=== PATIENT | female | born 2000 | race Hispanic/Latino ===

== ENCOUNTER 2025-07-31 19:14 | Inpatient (IN) | payer SELFPAY ==
[~2025-07-31] VITALS: Ht 167.6 cm; Wt 120.2 kg
[2025-07-31 19:35] LABS: IMMATURE GRANULOCYTE ABSOLUTE 0.06 K/uL (0-1); NUCLEATED RED BLOOD CELLS 0.0 % (0.0-0.19); PLATELET COUNT (AUTO) 276 K/uL (130-400); RED BLOOD CELL COUNT(AUTO) 4.57 MIL/uL (4.00-5.50); RED CELL DISTRIBUTION WIDTH 15.9 % (11.0-15.5); WHITE BLOOD COUNT (AUTO) 15.4 K/uL (4.8-10.8)
[2025-07-31 19:43] LABS: CREATININE 0.6 mg/dL (0.5-1.0); GLOMERULAR FILTR. RATE CALC 128.0 mL/min (>90); GLUCOSE,RANDOM 111.0 mg/dL (70-105); SODIUM SERUM 143.0 mmol/L (136-145); UREA NITROGEN, BLOOD 9.0 mg/dL (7-18)
--- NOTE | 2025-07-31 19:58 | EKG ---
[facility] Test Date: 2025-07-31 Test Time: 19:53:58 Pat Name: DAYNA CARLSON Department: ED Room: 121 Gender: F Manager [employer]: [id number] Requested By: JUSTINE IBRAHIM Order Number: [id number] Reading MD: Saqib Simons Measurements Intervals [place] Rate: 68 P: 52 WI: 166 QRS: 24 QRSD: 97 T: 43 QT: 381 QTc: 405 Interpretive Statements Sinus rhythm No previous ECG available for comparison Electronically Signed On 08-01-2025 17:45:55 CDT by Saqib Simons Please click the below link to view image of tracing.
[2025-07-31] MEDS ORDERED: IOHEXOL-350 75 ML VIAL IV ONE (20:24)
[2025-07-31] MEDS: 0.9%NACL 1000ML 1,000 ML IV SCH (20:44)
[2025-07-31 20:48] LABS: ASPARTATE AMINOTRANSFERASE 17.0 U/L (10-37); TOTAL PROTEIN, SERUM 7.5 g/dL (6.0-8.3)
--- NOTE | 2025-07-31 21:03 | HMCIMG ---
EXAMINATION CT abdomen and pelvis with intravenous contrast. CLINICAL HISTORY Right upper quadrant pain to rule out acute cholecystitis. TECHNIQUE Axial CT of the abdomen and pelvis with intravenous contrast. Multiplanar reformations were generated and reviewed. CONTRAST With intravenous contrast. COMPARISON None provided. FINDINGS LUNG BASES Clear. No pleural effusions. LIVER Hepatomegaly with the craniocaudal length of the right lobe measuring up to 19.5 cm. GALLBLADDER AND BILE DUCTS Mild questionable gallbladder wall thickening measuring up to 0.4 cm. No hyperdense calculi. No biliary ductal dilatation. PANCREAS Unremarkable. SPLEEN Unremarkable. ADRENAL GLANDS Unremarkable. KIDNEYS, URETERS, AND BLADDER Normal appearance. No hydronephrosis or hydroureter. No urinary calculi. STOMACH AND BOWEL Unremarkable. No bowel obstruction, enteritis, or colitis. APPENDIX No CT features of acute appendicitis. PERITONEUM No free fluid or free air. LYMPH NODES No lymphadenopathy. REPRODUCTIVE Bulky left ovary measuring up to 3.6 x 3.4 cm. Recommend ultrasound correlation. Unremarkable as otherwise assessed. VASCULATURE Normal caliber aorta. BONES No aggressive or acute osseous pathology. IMPRESSION Hepatomegaly. Mild questionable gallbladder wall thickening. Recommend ultrasound correlation. Bulky left ovary. Recommend ultrasound correlation. /[place]
--- NOTE | 2025-07-31 21:41 | ERN ---
General Chief Complaint: Chest Pain Stated Complaint: CHEST/EPIGASTRIC PAIN Time Seen by MD: 19:16 Time Seen by Midlevel: 19:16 Source: patient History of Present Illness Initial Comments 29-year-old female presents to the emergency department with severe right upper quadrant abdominal pain initially described as chest pain. Pain started a proximally 4 hours prior to arrival. With associated nausea and vomiting. Denies any other symptoms. Does report having a history of gallstones Allergies: Coded Allergies: No Known Drug Allergies (Unverified Allergy, Unknown, 07/31/25) Past Medical History Past Medical History: No Pertinent History Past Surgical History: None Female( History) LMP: Jul 11, 2025 ROS Dictation CONSTITUTIONAL: Negative except for HPI HEAD/FACE: Negative except for HPI EENT: Negative except for HPI RESPIRATORY: Negative except for HPI GASTROINTESTINAL/ABDOMINAL: Negative except for HPI GENITOURINARY: Negative except for HPI MUSCULOSKELETAL: Negative except for HPI INTEGUMENTARY: Negative except for HPI NEUROLOGICAL/PSYCH: Negative except for HPI HEMATOLOGIC/LYMPHATIC: Negative except for HPI All Systems Negative, Except as noted above. 13 point review of systems assessed and all negative except for above. Physical Exam Physical Exam Dictation Vital Signs reviewed General Appearance: Alert, oriented x 3, no acute distress, well developed, nourished. Head and Face: non-traumatic. Eyes: PERRL, pink conjunctivas, eyelid no trauma, anterior chamber with arcus senilis. Ears: Pinnas intact and no signs of trauma or erythema ear canals clear and no discharge TM no erythema Nose: No discharge, no bleeding. Oropharynx: Mouth normal, tongue pink, pharynx clear,no erythema, tonsils no exudates, no abscesses noted, mucous membrane moist Neck: Supple, non-tender, no thyromegaly, no masses, no JVD, no bruits Breast:Deferred Chest:No tenderness, no crepitus, no paradoxical movement, no retractions Lungs:Clear, well-ventilated, symmetric, no rales, no wheezing, no rhonchi, no stridor, good breath sounds bilaterally Heart: Regular rate, regular rhythm, no murmur, no gallops Vascular: no peripheral edema, Abdomen: Soft, positive bowel sounds, nondistended, no guarding, nontender, no rebound, no masses no hepatomegaly, no splenomegaly, no Collier's sign, no hernias. Rectal: Deferred Genital: Deferred Neurological: Normal speech, motor function intact, sensory function intact Musculoskeletal: Neck nontender, full range of motion, back nontender, full range of motion, Extremities: nontender, full range of motion Skin: Color pink, dry, no turgor, no rash, no lacerations, no abrasions, no contusions. Lymphatic: Deferred Results Laboratory and Microbiology Lab and Micro Result Laboratory Tests Test 07/31/25 19:24 White Blood Count 15.4 K/uL (4.8-10.8) H Red Blood Count 4.57 MIL/uL (4.00-5.50) Hemoglobin 11.9 g/dL (12.0-16.0) L Hematocrit 37.6 % (36-48) Mean Corpuscular Volume 82.3 fL (79-99) Mean Corpuscular Hemoglobin 26.0 pg (27.0-33.0) L Mean Corpuscular Hemoglobin Concent 31.6 g/dL (32.0-36.0) L Red Cell Distribution Width 15.9 % (11.0-15.5) H Platelet Count 276 K/uL (130-400) Mean Platelet Volume 11.4 fL (7.5-10.5) H Immature Granulocyte % (Auto) 0.4 % (0-1) Neutrophils (%) (Auto) 80.3 % (40.0-77.0) H Lymphocytes (%) (Auto) 13.6 % (21.0-51.0) L Monocytes (%) (Auto) 4.7 % (3.0-13.0) Eosinophils (%) (Auto) 0.7 % (0.0-8.0) Basophils (%) (Auto) 0.3 % (0.0-5.0) Neutrophils # (Auto) 12.3 K/uL (1.8-7.7) H Lymphocytes # (Auto) 2.1 K/uL (1.0-4.8) Monocytes # (Auto) 0.7 K/uL (0.1-1.0) Eosinophils # (Auto) 0.11 K/uL (0.00-0.70) Basophils # (Auto) 0.04 K/uL (0.00-0.20) Absolute Immature Granulocyte (auto 0.06 K/uL (0-1) Nucleated Red Blood Cells 0.0 % (0.0-0.19) Sodium Level 143 mmol/L (136-145) Potassium Level 3.4 mmol/L (3.5-5.1) L Chloride Level 105 mmol/L (101-111) Carbon Dioxide Level 27 mmol/L (21-32) Blood Urea Nitrogen 9 mg/dL (7-18) Creatinine 0.6 mg/dL (0.5-1.0) Glomerular Filtration Rate Calc 128 mL/min (>90) Random Glucose 111 mg/dL (70-105) H Total Calcium 8.7 mg/dL (8.5-10.1) Total Bilirubin 0.4 mg/dL (0.2-1.0) Direct Bilirubin 0.1 mg/dL (0.0-0.3) Aspartate Amino Transf (AST/SGOT) 17 U/L (10-37) Alanine Aminotransferase (ALT/SGPT) 23 U/L (12-78) Alkaline Phosphatase 84 U/L (50-136) Troponin I High Sensitivity 4 ng/L (4-50) Total Protein 7.5 g/dL (6.0-8.3) Albumin 4.0 g/dL (3.5-5.0) Lipase 21 U/L (16-77) Serum Test, Qualitative NEGATIVE (NEGATIVE) Labs Reviewed?: Yes MDM MDM: Differential diagnosis: Rationale: Tests considered and ordered secondary to shared decision making include: Previous outside records reviewed: Old ER visits. Risk of complication and/or morbidity or mortality of patient management: None Medications-Per medication reconciliation Need for hospitalization: Patient does meet criteria for hospitalization. Need for emergency major/minor surgery: No There are no social concerns with this patient. Prescription drug management Prescriptions will include symptomatic care Patient's prior external medical records from other ER visits were reviewed by me as indicated. Prior testing and results from previous visits were reviewed. Prior tests were taken into account with medical decision making and resource utilization, independent historian/historians were used to obtain complete medical history. I independently interpreted the test that were performed, results were reviewed by me and considered findings on radiology if ordered. Medical management and examination interpretation discussions were had by me with other qualified healthcare professionals as indicated for the patient's care. Patient's abdominal CT scan shows questionable thickened gallbladder wall. Follow-up right upper quadrant ultrasound showed a gallstone stuck in the neck of the patient's gallbladder as well as other stones. In addition patient has a positive ultrasonic Collier's sign. In addition patient has an elevated white count to 15. Chemistry panel shows a mild hypokalemia and normal renal function negative no elevation of her LFTs. I discussed results with the patient and she told me that she has had prior episodes of this pain but it was dismissed as anxiety. I recommended to patient that she be admitted to the hospital as the gallbladder neck is impacted and her condition will not improve as long as the stone is stuck in the gallbladder neck. Also given that she has had 3-4 episodes of this in the past I recommend she have her gallbladder removed. She agreed to be admitted. The general surgeon on-call Dr. Shaffer she agreed to admit the patient to the hospitalist service with her as a consult. ED Course Orders Procedure Category Date Status Time 12 Lead Ekg Tracing- EKG 07/31/25 Complete Technical 19:17 Cbc With Differential LAB 07/31/25 Complete 19:17 Basic Metabolic Panel LAB 07/31/25 Complete 19:17 Testing, LAB 07/31/25 Complete Serum Hcg 19:17 Drug Screen Urine LAB 07/31/25 Logged 19:17 Troponin I High LAB 07/31/25 Complete Sensitivity 19:17 Chest 1vw RAD 07/31/25 Taken 19:58 Ketorolac PHA 07/31/25 In Process Tromethamine 15mg/Ml 20:30 Ct Abdomen/Pelvis CT 07/31/25 Resulted W/Contrast 20:10 Hepatic Function Panel LAB 07/31/25 Complete 20:10 Lipase LAB 07/31/25 Complete 20:10 0.9%Nacl 1000ml (Ns PHA 07/31/25 In Process 1000ml) 20:30 Ondansetron 4mg Inj PHA 07/31/25 In Process (Zofran 4mg Inj) 20:30 Iohexol (Omnipaque) PHA 07/31/25 Complete 20:24 Morphine 4mg Syg PHA 07/31/25 In Process (Morphine 4mg Syg) 20:30 Us Abdominal Ruq\Ltd US 07/31/25 Taken 20:31 Current Medications Medications (Trade) Dose Ordered Sig/Misael Route PRN Reason Start Time Stop Time Status Last Admin Dose Admin Iohexol (Omnipaque) 75 ml STK-MED ONCE IV 10/17/25 20:24 07/31/25 20:24 DC Ketorolac Tromethamine (toRADol) 15 mg ONCE IV 07/31/25 20:30 07/31/25 23:59 07/31/25 20:43 Morphine Sulfate (morPHINE 4MG SYG) 2 mg ONCE IVP 07/31/25 20:30 07/31/25 23:59 07/31/25 20:44 Ondansetron HCl (zoFRAN 4MG INJ) 4 mg ONCE IVP 07/31/25 20:30 07/31/25 23:59 07/31/25 20:44 Sodium Chloride 1,000 ml @ 0 mls/hr ONCE IV 07/31/25 20:30 08/01/25 20:29 07/31/25 20:44 Vital Signs Date Time Temp Pulse Resp B/P (MAP) Pulse Ox O2 Delivery O2 Flow Rate FiO2 07/31/25 20:27 98.8 92 18 149/80 99 Room Air* 0 21 07/31/25 19:16 99.0 70 22 145/88 98 Room Air 0 DX & DISP Disposition: Inpatient Departure Impression: Primary Impression: Acute cholecystitis due to biliary calculus Condition: Stable I have reviewed the case, and I agree with, Diagnosis and Plan I performed the substantive portion of the visit. I have reviewed and personally made and approve the management plan that is documented in the note by myself or the GIANNA. I acknowledge for responsibility for the patient's management plan. JUSTINE IBRAHIM Jul 31, 2025 21:41 RG MCFARLAND MD Jul 31, 2025 22:20
--- NOTE | 2025-07-31 22:37 | NUR ---
PATIENT NOT TAKING ANY HOME MEDS
--- NOTE | 2025-07-31 22:51 | HMCIMG ---
EXAM: CR Chest, 1 view CLINICAL HISTORY: Chest pain. COMPARISON: None provided. FINDINGS: The lungs show no infiltrates or other acute findings. No pleural effusion or pneumothorax. The cardiomediastinal silhouette is within normal limits. No acute osseous abnormality. IMPRESSION: No acute cardiopulmonary process is evident. /[employer]
[2025-07-31] MEDS: ZOSYN 3.375GM +NS 50ML IVPB ONE (22:52)
--- NOTE | 2025-07-31 22:54 | HMCIMG ---
EXAMINATION: ULTRASOUND OF THE ABDOMEN (LIMITED) WITH COLOR DOPPLER. CLINICAL HISTORY: Pain. COMPARISON: CT of the abdomen and pelvis with contrast from the same day. TECHNIQUE: Real-time grayscale ultrasound images of the abdomen. In addition, color Doppler is medically necessary to perform in order to evaluate vascularity and blood flow. FINDINGS: Liver: Bulky, the right hepatic lobe measures 18.3 cm in the craniocaudal dimension. There is increased echogenicity of the hepatic parenchyma. There is no focal hepatic abnormality or intrahepatic biliary ductal dilatation. There is a normal spectral Doppler of the main portal vein. Gallbladder: Overdistended with normal wall thickness (0.19 cm). No hyperemia or pericholecystic free fluid. There are multiple calculi, the largest measuring 1.5 cm, and a non-mobile calculus that measures 0.6 cm in the neck. The common bile duct is obscured by overlying bowel gas. Pancreas: Not well visualized. The right kidney is normal in caliber; it measures 11.8 x 6.1 x 5.5 cm in its craniocaudal, AP, and transverse dimensions, respectively. There is normal renal cortical thickness and cortical echogenicity. There is no renal calculus or hydronephrosis. IMPRESSION: Hepatomegaly with hepatic steatosis. Overdistended gallbladder with multiple calculi. Non-mobile calculus in the neck of the gallbladder. No acute cholecystitis. /[place]
--- NOTE | 2025-07-31 23:22 | HP ---
[facility] Date of Service: Jul 31, 2025 Time of Service: 23:21 PCP: Kimani Valle HISTORY OF PRESENT ILLNESS: This is a 25-year-old female no pertinent medical and surgical history who presents to the ED for complaints of epigastric pain which radiates to her right upper quadrant area and patient initially described it as chest pain.Patient reports pain was localized around epigastric are associated with nausea but no vomiting which started today.Patient reports she has similar problem like this before and she went to [facility] and was told she had only panic anxiety and was sent home.Patient reports she had scrambled egg and potatoes for breakfast and 4 hours after that she started experiencing severe pain.Patient states she has a normal bowel movement today. On examination,patient is awake,alert and coherent,continue to complain of epigastric pain 5/10 pain level.Patient denies fever,chills,vomiting,chest pain,palpitation and shortness of breath. Latest vital signs temperature 98, heart rate 92, blood pressure 149/80 saturation 99% on room air. Labs: WBC 15, with negative left shift of neutrophils 80, hemoglobin 11, hematocrit 37, platelet count 276. Potassium 3.4, random glucose 111, troponin four test negative the rest of the enzymes were normal. Chest x-ray result revealed no acute cardiopulmonary process. CT abdomen and pelvis with contrast result re vealed hepatomegaly. Mild questionable gallbladder wall thickening. Bulky left ovary. Abdominal ultrasound result revealed hepatomegaly with hepatic steatosis. Over distended gallbladder with multiple calculi. Nonmobile calculus in the neck of the gallbladder. No acute cholecystitis. While in the ER patient received Toradol 15 mg IV, 1 L NS bolus, morphine 2 mg IV, Zofran 4 mg IV and Zosyn IV. As per ER doctor Michelle, on-call surgeon was notified & consulted. Will admit patient for further medical management REVIEW OF SYSTEMS CONSTITUTIONAL: Denies fevers, chills, or night sweats. No unintentional weight loss reported. NEUROLOGICAL: Denies headache, amaurosis fugax, motor weakness, sensory deficit, vertigo/spinning sensation, gait abnormalities, or tremors. ENT: No hearing loss, otalgia, otorrhea, rhinitis, rhinorrhea, hoarseness, or sore throat. CARDIOVASCULAR: Denies any exertional angina, dyspnea on exertion, orthopnea, paroxysmal nocturnal dyspnea, palpitations, life-threatening arrhythmias, claudication. PULMONARY: Denies any shortness of breath, cough, phlegm/sputum, hemoptysis, pleuritic chest pain. SLEEP: Denies morning headaches, daytime somnolence or napping. Denies difficulty falling asleep, staying asleep, waking from sleep. Denies knowledge of snoring. GASTROINTESTINAL: Epigastric and right upper quadrant associated with nausea Denies any type of dysphagia to either liquids or solids. Denies vomiting, pyrosis, early satiety, diarrhea, constipation, or changes in stool consistency or caliber. Denies coffee-ground emesis, hematemesis, hematochezia, or melanotic stools. GENITOURINARY: Denies frequency, urgency, nocturia, hematuria or incontinence (Storage/Irritative symptoms.) Low urinary stream, straining to void, urinary intermittency or hesitancy, splitting of the voiding stream, terminal dribbling. ENDOCRINOLOGIC: Denies polyuria, polydipsia, polyphagia or heat/cold intolerances. HEMATOLOGIC: Denies thrombophilia/previous clots, or coagulopathy/bleeding disorders. ONCOLOGIC: Denies personal history of malignancy. DERMATOLOGIC: Denies rashes or pruritus. PSYCHIATRIC: Denies any suicidal or homicidal ideation. Denies hallucinations. PAST MEDICAL HISTORY: [ Patient denies ] PAST SURGICAL HISTORY: [Patient denies ] PAST SOCIAL HISTORY: [Patient denies alcohol tobacco and recreational drug use patient admits to living with mother. Patient states occasionally she drinks two beers per month ] FAMILY HISTORY: [ Noncontributory ] Coded Allergies: No Known Drug Allergies (Unverified Allergy, Unknown, 07/31/25) PHYSICAL EXAM GENERAL APPEARANCE: The patient is awake, alert, and oriented, in no acute cardiopulmonary distress. NEUROLOGICAL: Cranial nerves II-XII grossly intact. Motor is 5/5 in bilateral upper and lower extremities proximal to distal. No sensory deficits. HEENT: Face is symmetric. Pupils are equal and reactive. Extraocular movements are intact. NECK: Supple. No JVD. No thyromegaly. No submental, submandibular, pre- /postauricular, occipital or supraclavicular lymphadenopathy. CHEST: Normal chest expansion. No Telemetry. LUNGS: Absence of any rales, rhonchi or any wheezing. CARDIOVASCULAR: Regular. S1 and S2 normal. No appreciable rubs, murmurs or gallops. ABDOMEN: abdominal tenderness around right upper quadrant and epigastric area on palpation Soft and nondistended. There is no rebound, voluntary guarding, or rigidity. : Deferred. No [place]. EXTREMITIES: Non-edematous and not cyanotic. No clubbing. Good capillary refill. SKIN: No skin breakdown. Vital Sign (Last 24 Hours) 07/31/25 20:27 Temp 98.8 Pulse 92 Resp 18 B/P (MAP) 149/80 Pulse Ox 99 O2 Delivery Room Air* O2 Flow Rate 0 FiO2 21 LABS: Laboratory: Test 07/31/25 19:24 Range/Units White Blood Count 15.4 H 4.8-10.8 K/uL Red Blood Count 4.57 4.00-5.50 MIL/uL Hemoglobin 11.9 L 12.0-16.0 g/dL Hematocrit 37.6 36-48 % Mean Corpuscular Volume 82.3 79-99 fL Mean Corpuscular Hemoglobin 26.0 L 27.0-33.0 pg Mean Corpuscular Hemoglobin Concent 31.6 L 32.0-36.0 g/dL Red Cell Distribution Width 15.9 H 11.0-15.5 % Platelet Count 276 130-400 K/uL Mean Platelet Volume 11.4 H 7.5-10.5 fL Immature Granulocyte % (Auto) 0.4 0-1 % Neutrophils (%) (Auto) 80.3 H 40.0-77.0 % Lymphocytes (%) (Auto) 13.6 L 21.0-51.0 % Monocytes (%) (Auto) 4.7 3.0-13.0 % Eosinophils (%) (Auto) 0.7 0.0-8.0 % Basophils (%) (Auto) 0.3 0.0-5.0 % Neutrophils # (Auto) 12.3 H 1.8-7.7 K/uL Lymphocytes # (Auto) 2.1 1.0-4.8 K/uL Monocytes # (Auto) 0.7 0.1-1.0 K/uL Eosinophils # (Auto) 0.11 0.00-0.70 K/uL Basophils # (Auto) 0.04 0.00-0.20 K/uL Absolute Immature Granulocyte (auto 0.06 0-1 K/uL Nucleated Red Blood Cells 0.0 0.0-0.19 % Sodium Level 143 136-145 mmol/L Potassium Level 3.4 L 3.5-5.1 mmol/L Chloride Level 105 101-111 mmol/L Carbon Dioxide Level 27 21-32 mmol/L Blood Urea Nitrogen 9 7-18 mg/dL Creatinine 0.6 0.5-1.0 mg/dL Glomerular Filtration Rate Calc 128 >90 mL/min Random Glucose 111 H 70-105 mg/dL Total Calcium 8.7 8.5-10.1 mg/dL Total Bilirubin 0.4 0.2-1.0 mg/dL Direct Bilirubin 0.1 0.0-0.3 mg/dL Aspartate Amino Transf (AST/SGOT) 17 10-37 U/L Alanine Aminotransferase (ALT/SGPT) 23 12-78 U/L Alkaline Phosphatase 84 50-136 U/L Troponin I High Sensitivity 4 4-50 ng/L Total Protein 7.5 6.0-8.3 g/dL Albumin 4.0 3.5-5.0 g/dL Lipase 21 16-77 U/L Serum Test, Qualitative NEGATIVE NEGATIVE Current Medications Medications (Trade) Dose Ordered Sig/Misael Route PRN Reason Start Time Stop Time Status Last Admin Dose Admin Ketorolac Tromethamine (toRADol) 15 mg ONCE IV 07/31/25 20:30 07/31/25 23:59 07/31/25 20:43 15 MG Morphine Sulfate (morPHINE 4MG SYG) 2 mg ONCE IVP 07/31/25 20:30 07/31/25 23:59 07/31/25 20:44 2 MG Ondansetron HCl (zoFRAN 4MG INJ) 4 mg ONCE IVP 07/31/25 20:30 07/31/25 23:59 07/31/25 20:44 4 MG Sodium Chloride 1,000 ml @ 0 mls/hr ONCE IV 07/31/25 20:30 08/01/25 20:29 07/31/25 20:44 999 MLS/HR DIAGNOSTICS / RADIOLOGY: [ ] ASSESSMENT: Symptomatic cholelithiasis secondary to gallstones Acute leukocytosis POA Hypokalemia POA Morbid obesity POA PLAN: We will admit patient in medical surgical We will keep nothing by mouth We will started famotidine 20 mg IV b.i.d. for GI prophylaxis Continue Zosyn IV Q 8 hours for empiric coverage We will start NS @ 100 ml / hr x2 bags and re evaluate We will replace electrolytes as needed per protocol We will add prn medication for fever,pain,cough , nausea and vomiting General surgery consultation per ER MD and pending to evaluate We will request labs in am Up urinalysis and urine drug screen result Further orders to follow depending on above results Case discussed with attending physician and came up with above treatment and plan of care. ADVANCED CARE PLANNING 1. Which of the following were discussed? Hospice Care - No Therapeutic options - Yes Advance Directives - No Other discussions - 2. Discussed with who? Patient and mother 3. Voluntary nature of this service was explained to the patient? Yes 4. Amount of time spent - _22 min 5. Reviewed by Physician? (if this service was performed by NPP) Yes Patient seen and examined by me. Agree with note by FISH CUTTING MACHINE OPERATOR SEE ADDITIONAL ORDERS PER CHART DISCUSSED WITH NURSING STAFF INA VOP Jul 31, 2025 23:22
[2025-08-01] VITALS (23 sets, daily range): BP systolic 105–136; BP diastolic 60–89; PULSE 64–92; RESP 16–19; TEMP 97.2–98.1; O2SAT 100
[2025-08-01] MEDS: 0.9%NACL 1000ML 1,000 ML IV SCH (00:21)
--- NOTE | 2025-08-01 01:40 | NUR ---
admit note/teaching admit to room 421 via stretcher from er, patient awake, alert, ox3, no sob, no c/o pain at this time,iv fusing well to right ac20 gauge catheter, patients mother at bedside, teach patient and family member plan of care, npo status, pain management and expected outcome, both verbalize understanding via teach back,
[2025-08-01 02:13] LABS: ADD UA MICROSCOPIC YES; APPEARANCE,URINE CLEAR (CLEAR); GLUCOSE, URINE (UA) NEGATIVE (NEGATIVE); LEUKOCYTE ESTERASE ,URINE NEGATIVE Leu/uL (NEGATIVE); NITRATE,URINE NEGATIVE (NEGATIVE); OCCULT BLOOD,URINE MODERATE (NEGATIVE)
[2025-08-01 02:15] LABS: SQUAMOUS EPITHELIAL CELL,UR RARE /HPF (0-2)
[2025-08-01 02:18] LABS: AMPHET/METH SCREEN,URINE NEGATIVE (NEGATIVE); BARBITURATE SCREEN, URINE NEGATIVE (NEGATIVE); CANNABINOID SCREEN,URINE NEGATIVE (NEGATIVE); COCAINE SCREEN,URINE NEGATIVE (NEGATIVE)
[2025-08-01] MEDS: ZOSYN 3.375GM+NS 50ML 50 ML IV SCH (04:15)
[2025-08-01 05:51] LABS: IMMATURE GRANULOCYTE ABSOLUTE 0.02 K/uL (0-1); NUCLEATED RED BLOOD CELLS 0.0 % (0.0-0.19); PLATELET COUNT (AUTO) 239 K/uL (130-400); RED BLOOD CELL COUNT(AUTO) 4.07 MIL/uL (4.00-5.50); RED CELL DISTRIBUTION WIDTH 15.9 % (11.0-15.5); WHITE BLOOD COUNT (AUTO) 11.8 K/uL (4.8-10.8)
[2025-08-01 06:04] LABS: INR 1.03 (0.85-1.15)
[2025-08-01 06:07] LABS: ASPARTATE AMINOTRANSFERASE 13.0 U/L (10-37); CREATININE 0.5 mg/dL (0.5-1.0); GLOMERULAR FILTR. RATE CALC 133.0 mL/min (>90); GLUCOSE,RANDOM 85.0 mg/dL (70-105); LDL DIRECT 53.0 mg/dL (0-99); SODIUM SERUM 141.0 mmol/L (136-145); TOTAL PROTEIN, SERUM 5.8 g/dL (6.0-8.3); UREA NITROGEN, BLOOD 6.0 mg/dL (7-18)
[2025-08-01] MEDS: FAMOTIDINE 20MG VIAL IV SCH (08:09)
--- NOTE | 2025-08-01 09:46 | PN ---
Consulting physician:Dr Grossman Consulting service: General surgery Reason for consultation: Symptomatic cholelithiasis History of present illness: This is a 25-year-old female with no significant medical history that has been consulted to surgery after presenting with the abdominal pain that began yesterday. Patient with known history of cholelithiasis. Last episode earlier this year. Due to concerns patient presented where imaging was performed and concerns of gallbladder distention noted. WBCs 11.8 with a hemoglobin of 10.7. LFTs unremarkable. On physical exam patient is still with the upper quadrant discomfort. Patient currently NPO with IV fluids and IV antibiotics Medical history: Known cholelithiasis Surgical history: None reported Review of systems: General: No Fever, No Chills, No Night Sweats, No Fatigue, No Malaise, No Appetite, No Other HEENT: No Head Aches, No Visual Changes, No Eye Pain, No Ear Pain, No Dysphasia, No Sinus Congestion, No Post Nasal Drip, No Sore Throat, No Other Pulmonary: No Dyspnea, No Cough, No Pleuritic Chest Pain, No Other Cardiovascular: No: Chest Pain, Palpitations, Orthopnea, Paroxysmal No Dyspnea, Edema, Lt Headedness, Other Gastrointestinal: No: Nausea, Vomiting, Diarrhea, Constipation, Melena, Hematochezia, Other Genitourinary: No Dysuria, No Frequency, No Incontinence, No Hematuria, No Retention, No Other Musculoskeletal: No: other, neck pain, shoulder pain, arm pain, back pain, hand pain, leg pain, foot pain Skin: No Urticaria, No Rash, No Other Neurological: No: Weakness, Numbness, Incoordination, Change in speech, Confusion, Seizures, Other Physical exam: General: Awake alert and oriented Heart: Regular rate and rhythm} Lungs: [Clear to auscultation no distress Abdomen: Improving upper quadrant pain Assessment: This is a 25-year-old female with concerns of symptomatic cholelithiasis Plan: At this point in time patient will be scheduled for robotic laparoscopic cholecystectomy possible open to be performed by Dr. Shaffer Patient will remain NPO Continue with the IV fluids and IV antibiotics Consent to be obtained for surgical intervention Nursing to report any further acute events Surgical case has been discussed with my supervising physician in the above plan was formulated and agreed upon Supervising physicians evaluation the patient be done within next 24 hours We appreciate the hospitalist team for us to participate in patient's care. Greater than 55 minutes of time spent patient, reviewing chart, working on documentation Vitals/Labs Vital Signs Date Time Temp Pulse Resp B/P (MAP) Pulse Ox O2 Delivery O2 Flow Rate FiO2 08/01/25 08:00 100 Room Air* 0 21 08/01/25 07:57 98.1 77 18 122/80 Laboratory Tests 07/31/25 19:24 08/01/25 05:22 Medications Current Medications Ketorolac Tromethamine 15 mg ONCE IV Last administered on 07/31/25at 20:43; Start 07/31/25 at 20:30; Stop 07/31/25 at 23:59; Status DC Sodium Chloride 1,000 ml @ 0 mls/hr ONCE IV Last administered on 07/31/25at 20:44; Start 07/31/25 at 20:30; Stop 08/01/25 at 20:29 Morphine Sulfate 2 mg ONCE IVP Last administered on 07/31/25at 20:44; Start 07/31/25 at 20:30; Stop 07/31/25 at 23:59; Status DC Ondansetron HCl 4 mg ONCE IVP Last administered on 07/31/25at 20:44; Start 07/31/25 at 20:30; Stop 07/31/25 at 23:59; Status DC Iohexol 75 ml STK-MED ONCE IV; Start 07/31/25 at 20:24; Stop 07/31/25 at 20:24; Status DC Piperacillin Sod/ Tazobactam Sod 3.375 gm ONCE ONCE IVPB Last administered on 07/31/25at 22:52; Start 07/31/25 at 22:30; Stop 07/31/25 at 22:45; Status DC Acetaminophen 650 mg Q6H PRN PO; Start 08/01/25 at 00:00; Stop 08/31/25 at 00:00 Acetaminophen 650 mg Q4H PRN PO; Start 08/01/25 at 00:00; Stop 08/31/25 at 00:00 Ondansetron HCl 4 mg Q6H PRN IV; Start 08/01/25 at 00:00; Stop 08/31/25 at 00:00 Piperacillin Sod/ Tazobactam Sod 50 ml @ 12.5 mls/hr Q8H IV Last administered on 08/01/25at 04:15; Start 08/01/25 at 05:00; Stop 08/11/25 at 04:59 Sodium Chloride 1,000 ml @ 100 mls/hr Q10H IV Last administered on 08/01/25at 00:21; Start 08/01/25 at 00:00; Stop 08/31/25 at 00:00 Famotidine 20 mg BID IV Last administered on 08/01/25at 08:09; Start 08/01/25 at 09:00; Stop 08/31/25 at 08:59 Ketorolac Tromethamine 15 mg Q6H PRN IV; Start 08/01/25 at 00:00; Stop 08/06/25 at 00:00 WEI AMES Jr. PAC Aug 01, 2025 09:46
--- NOTE | 2025-08-01 13:00 | NUR ---
PATIENT TAKEN TO PROCEDURE. NO SIGNS OF DISTRESS NOTED.
--- NOTE | 2025-08-01 13:00 | PN ---
[facility] PROGRESS NOTE Date of Service: Aug 01, 2025 Time of Service: 12:57 Attending doctor Lupe SUBJECTIVE: [ 07/31 This is a 25-year-old female no pertinent medical and surgical history who presents to the ED for complaints of epigastric pain which radiates to her right upper quadrant area and patient initially described it as chest pain.Patient reports pain was localized around epigastric are associated with nausea but no vomiting which started today.Patient reports she has similar problem like this before and [place] [facility] [place] she had only panic anxiety and was sent home.Patient reports she had scrambled egg and potatoes for breakfast and 4 hours after that she started experiencing severe pain.Patient states she has a normal bowel movement today. On examination,patient is awake,alert and coherent,continue to complain of epigastric pain 5/10 pain level.Patient denies fever,chills,vomiting,chest pain,palpitation and shortness of breath. Latest vital signs temperature 98, heart rate 92, blood pressure 149/80 saturation 99% on room air. Labs: WBC 15, with negative left shift of neutrophils 80, hemoglobin 11, hematocrit 37, platelet count 276. Potassium 3.4, random glucose 111, troponin four test negative the rest of the enzymes were normal. Chest x-ray result revealed no acute cardiopulmonary process. CT abdomen and pelvis with contrast result revealed hepatomegaly. Mild questionable gallbladder wall thickening. Bulky left ovary. Abdominal ultrasound result revealed hepatomegaly with hepatic steatosis. Over distended gallbladder with multiple calculi. Nonmobile calculus in the neck of the gallbladder. No acute cholecystitis. While in the ER patient received Toradol 15 mg IV, 1 L NS bolus, morphine 2 mg IV, Zofran 4 mg IV and Zosyn IV. As per ER doctor Michelle, on-call surgeon was notified & consulted. Will admit patient for further medical management 08/01 patient was seen by nurse practitioner and physician during rounding in room 121 patient's WBC is trending down today is 11.8. Patient continues to be on Zosyn. Patient was examined by a surgeon and that is pending kam curtis today 08/01/2025. Patient continues to complain of abdominal pain. Family at the bedside. Patient to be on p.o.. We will continue to follow up in the meantime. A.m. labs. ] REVIEW OF SYSTEMS CONSTITUTIONAL: Denies fevers, chills, or night sweats. No unintentional weight loss reported. NEUROLOGICAL: Denies headache, amaurosis fugax, motor weakness, sensory deficit, vertigo/spinning sensation, gait abnormalities, or tremors. ENT: No hearing loss, otalgia, otorrhea, rhinitis, rhinorrhea, hoarseness, or sore throat. CARDIOVASCULAR: Denies any exertional angina, dyspnea on exertion, orthopnea, paroxysmal nocturnal dyspnea, palpitations, life-threatening arrhythmias, claudication. PULMONARY: Denies any shortness of breath, cough, phlegm/sputum, hemoptysis, p leuritic chest pain. SLEEP: Denies morning headaches, daytime somnolence or napping. Denies difficulty falling asleep, staying asleep, waking from sleep. Denies knowledge of snoring. GASTROINTESTINAL: Epigastric and right upper quadrant associated with nausea Denies any type of dysphagia to either liquids or solids. Denies vomiting, pyrosis, early satiety, diarrhea, constipation, or changes in stool consistency or caliber. Denies coffee-ground emesis, hematemesis, hematochezia, or melanotic stools. GENITOURINARY: Denies frequency, urgency, nocturia, hematuria or incontinence (Storage/Irritative symptoms.) Low urinary stream, straining to void, urinary intermittency or hesitancy, splitting of the voiding stream, terminal dribbling. ENDOCRINOLOGIC: Denies polyuria, polydipsia, polyphagia or heat/cold intolerances. HEMATOLOGIC: Denies thrombophilia/previous clots, or coagulopathy/bleeding disorders. ONCOLOGIC: Denies personal history of malignancy. DERMATOLOGIC: Denies rashes or pruritus. PSYCHIATRIC: Denies any suicidal or homicidal ideation. Denies hallucinations. PHYSICAL EXAM GENERAL APPEARANCE: The patient is awake, alert, and oriented, in no acute cardiopulmonary distress. NEUROLOGICAL: Cranial nerves II-XII grossly intact. Motor is 5/5 in bilateral upper and lower extremities proximal to distal. No sensory deficits. HEENT: Face is symmetric. Pupils are equal and reactive. Extraocular movements are intact. NECK: Supple. No JVD. No thyromegaly. No submental, submandibular, pre-/postauricular, occipital or supraclavicular lymphadenopathy. CHEST: Normal chest expansion. No Telemetry. LUNGS: Absence of any rales, rhonchi or any wheezing. CARDIOVASCULAR: Regular. S1 and S2 normal. No appreciable rubs, murmurs or gallops. ABDOMEN: abdominal tenderness around right upper quadrant and epigastric area on palpation Soft and nondistended. There is no rebound, voluntary guarding, or rigidity. : Deferred. No Soto. EXTREMITIES: Non-edematous and not cyanotic. No clubbing. Good capillary refill. SKIN: No skin breakdown. Vital Signs (last 8hr) Date Time Temp Pulse Resp B/P (MAP) Pulse Ox O2 Delivery O2 Flow Rate FiO2 08/01/25 10:29 98.1 70 19 135/85 98 Room Air 08/01/25 08:00 100 Room Air* 0 21 08/01/25 07:57 98.1 77 18 122/80 100 Room Air LABS: Laboratory: Test 08/01/25 05:22 08/01/25 02:00 07/31/25 19:24 Range/Units White Blood Count 11.8 H 4.8-10.8 K/uL Red Blood Count 4.07 4.00-5.50 MIL/uL Hemoglobin 10.7 L 12.0-16.0 g/dL Hematocrit 32.4 L 36-48 % Mean Corpuscular Volume 79.6 79-99 fL Mean Corpuscular Hemoglobin 26.3 L 27.0-33.0 pg Mean Corpuscular Hemoglobin Concent 33.0 32.0-36.0 g/dL Red Cell Distribution Width 15.9 H 11.0-15.5 % Platelet Count 239 130-400 K/uL Mean Platelet Volume 11.7 H 7.5-10.5 fL Immature Granulocyte % (Auto) 0.2 0-1 % Neutrophils (%) (Auto) 64.6 40.0-77.0 % Lymphocytes (%) (Auto) 27.7 21.0-51.0 % Monocytes (%) (Auto) 5.7 3.0-13.0 % Eosinophils (%) (Auto) 1.6 0.0-8.0 % Basophils (%) (Auto) 0.2 0.0-5.0 % Neutrophils # (Auto) 7.6 1.8-7.7 K/uL Lymphocytes # (Auto) 3.3 1.0-4.8 K/uL Monocytes # (Auto) 0.7 0.1-1.0 K/uL Eosinophils # (Auto) 0.19 0.00-0.70 K/uL Basophils # (Auto) 0.02 0.00-0.20 K/uL Absolute Immature Granulocyte (auto 0.02 0-1 K/uL Nucleated Red Blood Cells 0.0 0.0-0.19 % Prothrombin Time 10.9 9.6-11.6 SEC Prothromb Time International Ratio 1.03 0.85-1.15 Activated Partial Thromboplast Time 33.7 26.3-35.5 SEC Sodium Level 141 136-145 mmol/L Potassium Level 4.4 3.5-5.1 mmol/L Chloride Level 108 101-111 mmol/L Carbon Dioxide Level 27 21-32 mmol/L Blood Urea Nitrogen 6 L 7-18 mg/dL Creatinine 0.5 0.5-1.0 mg/dL Glomerular Filtration Rate Calc 133 >90 mL/min Random Glucose 85 70-105 mg/dL Total Calcium 7.8 L 8.5-10.1 mg/dL Magnesium Level 1.70 L 1.80-2.40 mg/dL Total Bilirubin 0.5 # 0.2-1.0 mg/dL Aspartate Amino Transf (AST/SGOT) 13 10-37 U/L Alanine Aminotransferase (ALT/SGPT) 18 # 12-78 U/L Alkaline Phosphatase 68 50-136 U/L Troponin I High Sensitivity 5 4-50 ng/L Total Protein 5.8 #L 6.0-8.3 g/dL Albumin 3.1 #L 3.5-5.0 g/dL Triglycerides Level 119 30-200 mg/dL Cholesterol Level 101 <200 mg/dL LDL Cholesterol 53 0-99 mg/dL HDL Cholesterol 33 L 35-85 mg/dL Urine Color LIGHT-YELLOW YELLOW Urine Appearance CLEAR CLEAR Urine pH 6.5 5.0-8.0 Urine Specific La[place]y 1.036 H 1.001-1.031 Urine Protein NEGATIVE NEGATIVE mg/dL Urine Glucose (UA) NEGATIVE NEGATIVE mg/dL Urine Ketones NEGATIVE NEGATIVE mg/dL Urine Occult Blood MODERATE H NEGATIVE Urine Nitrate NEGATIVE NEGATIVE Urine Bilirubin NEGATIVE NEGATIVE mg/dL Urine Urobilinogen 0.2 0.2-1.0 mg/dL Urine Leukocyte Esterase NEGATIVE NEGATIVE Efrain/uL Urine RBC 11-25 H 0-1 /HPF Urine WBC 2-5 H 0-1 /HPF Urine Squamous Epithelial Cells RARE 0-2 /HPF Urine Bacteria None None Seen /HPF Urine Opiates Screen POSITIVE H NEGATIVE Urine Barbiturates Screen NEGATIVE NEGATIVE Urine Phencyclidine Screen NEGATIVE NEGATIVE Urine Amphetamines Screen NEGATIVE NEGATIVE Urine Benzodiazepines Screen NEGATIVE NEGATIVE Urine Cocaine Screen NEGATIVE NEGATIVE Urine Marijuana (THC) Screen NEGATIVE NEGATIVE Hemoglobin A1c 5.6 4.0-6.0 % Estimated Average Glucose (eAG) 114 70-126 mg/dL Direct Bilirubin 0.1 0.0-0.3 mg/dL Lipase 21 16-77 U/L Serum Test, Qualitative NEGATIVE NEGATIVE Current Medications Medications (Trade) Dose Ordered Sig/Misael Route PRN Reason Start Time Stop Time Status Last Admin Dose Admin Acetaminophen (TYLenol 325MG TAB) 650 mg Q4H PRN PO MILD PAIN (1-3) 08/01/25 00:00 08/31/25 00:00 Acetaminophen (TYLenol 325MG TAB) 650 mg Q6H PRN PO TEMPERATURE GREATER THAN 101.5 08/01/25 00:00 08/31/25 00:00 Famotidine (Pepcid 20mg Vial) 20 mg BID IV 08/01/25 09:00 08/31/25 08:59 08/01/25 08:09 20 MG Ketorolac Tromethamine (toRADol) 15 mg ONCE IV 07/31/25 20:30 07/31/25 23:59 DC 07/31/25 20:43 15 MG Ketorolac Tromethamine (toRADol) 15 mg Q6H PRN IV MODERATE PAIN (4-6) 08/01/25 00:00 08/06/25 00:00 Morphine Sulfate (morPHINE 4MG SYG) 2 mg ONCE IVP 07/31/25 20:30 07/31/25 23:59 DC 07/31/25 20:44 2 MG Ondansetron HCl (zoFRAN 4MG INJ) 4 mg ONCE IVP 07/31/25 20:30 07/31/25 23:59 DC 07/31/25 20:44 4 MG Ondansetron HCl (zoFRAN 4MG INJ) 4 mg Q6H PRN IV NAUSEA/VOMITING 08/01/25 00:00 08/31/25 00:00 Piperacillin Sod/ Tazobactam Sod 50 ml @ 12.5 mls/hr Q8H IV 08/01/25 05:00 08/11/25 04:59 08/01/25 04:15 12.5 MLS/HR Sodium Chloride 1,000 ml @ 0 mls/hr ONCE IV 07/31/25 20:30 08/01/25 20:29 07/31/25 20:44 999 MLS/HR Sodium Chloride 1,000 ml @ 100 mls/hr Q10H IV 08/01/25 00:00 08/31/25 00:00 08/01/25 10:03 100 MLS/HR DIAGNOSTICS / RADIOLOGY: [ ] ASSESSMENT: Symptomatic cholelithiasis secondary to gallstones Acute leukocytosis POA Hypokalemia POA Morbid obesity POA PLAN: patient's WBC is trending down today is 11.8. Patient continues to be on Zosyn. Patient was examined by a surgeon and that is pending lap ever today 08/01/2025. Patient continues to complain of abdominal pain. Family at the bedside. Patient to be on p.o.. We will continue to follow up in the meantime. A.m. labs. Continue patient in medical surgical Continue famotidine 20 mg IV b.i.d. for GI prophylaxis Continue Zosyn IV Q 8 hours for empiric coverage Continue NS @ 100 ml / hr x2 bags and re evaluate We will replace electrolytes as needed per protocol We will add prn medication for fever,pain,cough , nausea and vomiting We will request labs in am Urinalysis negative Further orders to follow depending on above results Case discussed with attending physician and came up with above treatment and plan of care. ATTESTATION BY PHYSICIAN I reviewed the documentation, medical decision making, and treatment plan as noted by the mid-level provider above. I agree with the findings and plan of care. So Andrade MD, [facility] Aug 01, 2025 13:00 SO ANDRADE MD Aug 03, 2025 12:53
[2025-08-01] MEDS: MAGNESIUM 2GM PREMIX 50ML 50 ML IV SCH (13:11)
[2025-08-01] MEDS ORDERED: LIDOCAINE PF 100MG/5ML (2%) SYRINGE 5ML ONE (14:27)
[2025-08-01] MEDS ORDERED: MIDAZOLAM HCL 1 MG/ML 2ML VIAL ONE (14:28)
[2025-08-01] MEDS: INDOCYANINE GREEN 25 MG VIAL IJ ONE (14:41)
[2025-08-01] MEDS ORDERED: GLYCOPYRROLATE 0.2 MG/ML 5 ML VIAL ONE (14:47)
[2025-08-01] MEDS ORDERED: NEOSTIGMINE METHYLSULFATE 1MG/ML IV ONE (14:48)
--- NOTE | 2025-08-01 15:50 | OP ---
Operative Note: DATE OF PROCEDURE: 08/01/25 PROCEDURE PERFORMED: Robotic cholecystectomy. PREOPERATIVE DIAGNOSIS: Acute Cholecystitis POSTOPERATIVE DIAGNOSIS: same ANESTHESIA: General endotracheal. SURGEON: Beckie Shaffer MD DEVICE LEFT IN PLACE: None. FLUIDS AND BLOOD PRODUCTS: Per anesthesia report. SPECIMENS REMOVED: Gallbladder. COMPLICATIONS: None immediate. PATIENT CONDITION: Stable. Blood loss: Minimal DESCRIPTION OF PROCEDURE: The patient was brought to the operating room and placed on the operating table in a supine position. Once general endotracheal anesthesia was achieved the patient's abdomen is prepped and draped in sterile fashion. Had then proceeded to create a transverse incision at the left upper quadrant at frausto's point and under direct visualization went through the abdominal wall with a 5 mm Optiview entered the abdominal cavity and obtain a pneumoperitoneum. After obtaining pneumoperitoneum we placed under direct visualization to 8 mm trocars one in the far right flank and the other one in the right lower abdomen. I then switched out the 5 mm trocar in the left upper quadrant for 8 mm trocar. And then placed another 8 mm trocar in the left hemiabdomen to the left of the midline through the rectus muscle for the camera. Place the patient in reverse Trendelenburg and rotated to the left. Brought the robot over top of the patient right and docked the robot. There was significant amount of adhesions to the gallbladder that were taken down with the cautery with dissection. I then proceeded to retract the gallbladder from the fundus and infundibulum and started our dissection of the hilum. We bluntly dissected the hilum to expose the cystic duct and cystic artery and once we had a critical view for safety, which was confirmed with firefly technology. We proceeded to place two clips in the cystic duct proximally and distally. We divided and then did the same with our cystic artery. We then proceeded to remove the gallbladder off the liver bed using Bovie cautery. Once this was done, we then proceeded to evaluate the liver bed for hemostasis. We made sure there was no bile leaks or any bleeding. I then proceeded to bring the 5 mm Endo-Catch bag through the lateral right port. Placed the gallbladder within the bag and within the bag I proceeded to drain it. We then proceeded to remove the trocar in this area and dilated the muscle with a hemostat and proceeded to remove the gallbladder through this right lateral port. I then closed the muscle with a running 2-0 V lock suture. We then proceeded to undocked our all her instruments and the robot. Removed all the trocars from the abdominal wall confirmed no bleeding. the skin incisions were closed using skin stapler. a sterile dressing was applied. The patient tolerated the procedure well. All counts correct x2 at the end of the procedure BECKIE SHAFFER MD Aug 01, 2025 15:50
--- NOTE | 2025-08-01 16:24 | NUR ---
REPORT REPORT RECEIVED FROM PARIS VAUGHN IN PACU. PATIENT IS STABLE BUT HAS ANOTHER 30 MINUTES BEFORE ARRIVING BACK TO THE UNIT. -BP 126/71 -HR 68 -RR 18 -O2 99% 2 LTRS NASAL CANNULA
--- NOTE | 2025-08-01 17:09 | NUR ---
PATIENT ARRIVED TO THE UNIT. PATIENT CRYING AND ANXIOUS AT THIS TIME. CONSOLED PATIENT ALONG WITH OVIDIO RN. PATIENT SET UP WITH FLUIDS. POST OP VITALS STARTED. WILL MONITOR PATIENT. Q
[2025-08-01] MEDS: SIMETHICONE 80 MG TAB.CHEW PO SCH (20:08)
[2025-08-02] VITALS (7 sets, daily range): BP systolic 115–137; BP diastolic 47–84; PULSE 58–84; RESP 16–18; TEMP 97.4–98.6; O2SAT 100
[2025-08-02 05:10] LABS: IMMATURE GRANULOCYTE ABSOLUTE 0.06 K/uL (0-1); NUCLEATED RED BLOOD CELLS 0.0 % (0.0-0.19); PLATELET COUNT (AUTO) 254 K/uL (130-400); RED BLOOD CELL COUNT(AUTO) 4.15 MIL/uL (4.00-5.50); RED CELL DISTRIBUTION WIDTH 15.9 % (11.0-15.5); WHITE BLOOD COUNT (AUTO) 10.8 K/uL (4.8-10.8)
[2025-08-02 05:36] LABS: ASPARTATE AMINOTRANSFERASE 35.0 U/L (10-37); CREATININE 0.6 mg/dL (0.5-1.0); GLOMERULAR FILTR. RATE CALC 128.0 mL/min (>90); GLUCOSE,RANDOM 97.0 mg/dL (70-105); SODIUM SERUM 140.0 mmol/L (136-145); TOTAL PROTEIN, SERUM 6.8 g/dL (6.0-8.3); UREA NITROGEN, BLOOD 5.0 mg/dL (7-18)
[2025-08-02] MEDS ORDERED: GABA100C PO (10:56)
[2025-08-02] MEDS ORDERED: SIME80TA13 PO (10:56)
[2025-08-02] MEDS ORDERED: AMOX1TAB16 PO (10:56)
--- NOTE | 2025-08-02 11:07 | DS ---
Discharge Summary Hospital Course Summary: DATE OF ADMISSION:[07/31/2025] DATE OF DISCHARGE:[08/02/2025] DISPOSITION:[Home] CONDITION:[Medically stable] CONSULTANTS:[Surgeon] FOLLOW UP APPOINTMENTS:[PCP 2 to 3 days. Surgeon within 1 to 2 weeks] PROCEDURES:[Lap ever 08/01/2025] IMAGING: report attached to summary MICROBIOLOGY: report attached to summary ACTIVITY:[Independent] HOME MEDICATIONS: see med [facility] NEW MEDICATIONS:[Written prescription given for tramadol 25 mg q.8 hours PRN gabapentin simethicone, Augmentin sent to patient's pharmacy] EMERGENCY INSTRUCTIONS: The patient was instructed to present to the nearest Emergency departmentr or call 911 once their symptoms will return or worsen Pay Station Collector(s): Patient is 25 years old female with no past medical and surgical history who came to emergency department with a complaint of epigastric pain which radiated to her right upper quadrant area which patient describes as a chest pain. Patient reports pain localized around epigastric pain that was associated with the nausea but no vomiting. CT abdomen/pelvis showed bulky left already. Chest x-ray negative. Ultrasound abdomen showed hepatic steatosis, multiple gallbladder calculi. Surgeon was consulted and on 08/01/2025 for the lap ever. Today patient was placed on a clear liquid diet. Surgeon was rounding and olga ared the patient to go home once passing gases and tolerating the food. Patient will receive full liquid diet for lunch and GI soft for dinner. Patient is cleared to be discharged home after requirements by surgeon are med. Prescription for Tramadol 25 mg p.o. q.8 hours PRN was given to the patient. Patient was instructed to follow up with PCP in 2 to 3 days and surgeon within 1 to 2 weeks. Procedure(s): REVIEW OF SYSTEMS CONSTITUTIONAL: Denies fevers, chills, or night sweats. No unintentional weight loss reported. NEUROLOGICAL: Denies headache, amaurosis fugax, motor weakness, sensory deficit, vertigo/spinning sensation, gait abnormalities, or tremors. ENT: No hearing loss, otalgia, otorrhea, rhinitis, rhinorrhea, hoarseness, or sore throat. CARDIOVASCULAR: Denies any exertional angina, dyspnea on exertion, orthopnea, paroxysmal nocturnal dyspnea, palpitations, life-threatening arrhythmias, claudication. PULMONARY: Denies any shortness of breath, cough, phlegm/sputum, hemoptysis, pleuritic chest pain. SLEEP: Denies morning headaches, daytime somnolence or napping. Denies d ifficulty falling asleep, staying asleep, waking from sleep. Denies knowledge of snoring. GASTROINTESTINAL: S/p lap ever complains of abdominal pain Denies any type of dysphagia to either liquids or solids. Denies vomiting, pyrosis, early satiety, diarrhea, constipation, or changes in stool consistency or caliber. Denies coffee-ground emesis, hematemesis, hematochezia, or melanotic stools. GENITOURINARY: Denies frequency, urgency, nocturia, hematuria or incontinence (Storage/Irritative symptoms.) Low urinary stream, straining to void, urinary intermittency or hesitancy, splitting of the voiding stream, terminal dribbling. ENDOCRINOLOGIC: Denies polyuria, polydipsia, polyphagia or heat/cold intolerances. HEMATOLOGIC: Denies thrombophilia/previous clots, or coagulopathy/bleeding disorders. ONCOLOGIC: Denies personal history of malignancy. DERMATOLOGIC: Denies rashes or pruritus. PSYCHIATRIC: Denies any suicidal or homicidal ideation. Denies hallucinations. PHYSICAL EXAM GENERAL APPEARANCE: The patient is awake, alert, and oriented, in no acute cardiopulmonary distress. NEUROLOGICAL: Cranial nerves II-XII grossly intact. Motor is 5/5 in bilateral upper and lower extremities proximal to distal. No sensory deficits. HEENT: Face is symmetric. Pupils are equal and reactive. Extraocular movements are intact. NECK: Supple. No JVD. No thyromegaly. No submental, submandibular, pre- /postauricular, occipital or supraclavicular lymphadenopathy. CHEST: Normal chest expansion. No Telemetry. LUNGS: Absence of any rales, rhonchi or any wheezing. CARDIOVASCULAR: Regular. S1 and S2 normal. No appreciable rubs, murmurs or gallops. ABDOMEN: Abdominal pain s/p lap ever Soft and nondistended. There is no rebound, voluntary guarding, or rigidity. : Deferred. No Soto. EXTREMITIES: Non-edematous and not cyanotic. No clubbing. Good capillary refill. SKIN: No skin breakdown. Assessment/Plan: ASSESSMENT: Symptomatic cholelithiasis secondary to gallstones per CT abdomen/pelvis S/p lap ever 08/01/2025 by Acute leukocytosis POA Hypokalemia POA Morbid obesity POA Time spent arranging discharge: 31-60 minutes ATTESTATION BY PHYSICIAN Patient is seen and examined at bedside earlier this morning, case discussed with the RN, no acute events overnight, patient alert oriented x3, already passing gas, already had a good bowel movement this morning. Plan for the patient to be discharged home today. NILTON MARCANO Aug 02, 2025 11:07 BLAISE FLORES MD Aug 03, 2025 09:09
--- NOTE | 2025-08-02 17:43 | NUR ---
AT THIS TIME. PATIENT STILL HAS NOT PASSED FLATUS. NOTIFIED [facility]OURER. PER [facility] LABOURER I AM TO CONTACT SURGERY FOR RECOMMENDATIONS. AT THIS THIS TIME SURGERY IS PAGED AND PENDING CALL BACK.
--- NOTE | 2025-08-02 18:14 | NUR ---
PER SURGERY WE WILL NOT DISCHARGE THE PATIENT UNTIL SHE PASSES FLATUS.
[2025-08-03 03:49] VITALS: BP 92/40; PULSE 74; RESP 18; TEMP 97.3
[2025-08-03 07:35] VITALS: BP 124/74; PULSE 67; RESP 19; TEMP 98
[2025-08-03 08:00] VITALS: O2SAT 100
--- NOTE | 2025-08-03 10:21 | NUR ---
DCP: HOME met with pt and her family at bedside. Pt resides with her brother Holden Schulte [phone] in his mobile home. Brother providers pt will all support needed. Pt unemployed, drives self as needed. Pt independent of all her ADLS, ambulation, uses no HH, provider, or HD services. Pt is seen at [facility] for medical care and meds. Uses [facility] for rx needs as well. Pt and family deny dc needs and pt will return to brother's home at dc Addendum: 08/03/25 at 1027 by NAOMI CALDERON Amended: Links added.
[2025-08-03 11:34] VITALS: BP 121/66; PULSE 62; RESP 18; TEMP 98
--- NOTE | 2025-08-03 13:10 | NUR ---
Attempted to obtain follow up appointment for patient with Dr. Shaffer's office. Staff currently out to lunch.
--- NOTE | 2025-08-03 13:20 | NUR ---
Pt. reported BM this morning. Given discharge instructions as per MD order--all questions answered and verbalized understanding. Peripheral IV removed and hemostasis achieved. Pt. dc'd via w/c to private vehicle. No acute distress noted.
== END 2025-08-03 13:45 | disposition home or self-care (01) | DRG 418 ==
LOC: EDH 19:14 → EDHIP 19:15 → 1MS 08-01 01:34
PROVIDERS: ADMIT Internal Medicine; ATTEND Internal Medicine
PROC: 8E0W4CZ Robotic Assisted Procedure of Trunk Region, Percutaneous Endoscopic Approach (ICD-10-PCS; 2025-08-01)
PROC: 0FT44ZZ Resection of Gallbladder, Percutaneous Endoscopic Approach (ICD-10-PCS; principal; 2025-08-01 14:44)
DX: K80.00 Calculus of gallbladder with acute cholecystitis without obstruction (principal); Z68.41 Body mass index [BMI] 40.0-44.9, adult; E66.01 Morbid (severe) obesity due to excess calories; E87.6 Hypokalemia; F41.9 Anxiety disorder, unspecified; K76.0 Fatty (change of) liver, not elsewhere classified; K82.8 Other specified diseases of gallbladder
CPT/HCPCS: 36415; 71045; 74177; 76705; 80048; 80053; 80061; 80076; 80305; 81001; 83036; 83690; 83735; 84484; 84703; 85025; 85610; 85730; 93005; 96361; 96374; 96375; 99285; A4450; G0378; J0690; J1100; J1885; J2003; J2250; J2270; J2405; J2543; J2704; J2710; J3010; J3475; J3490; J7030; Q9967; C1769; J0665; J1308